=== PATIENT | male | born 1975 | race African-American/Black ===

== ENCOUNTER → 2017-02-15 | Outpatient (CLI) | payer OTHER ==
--- NOTE | 2017-02-15 14:34 | KCIC ---
MR of the right knee HISTORY: Right knee pain laterally. Pain after getting out of car over 1 month ago. Swelling. TECHNIQUE: Routine multiplanar sequences are obtained. FINDINGS: Mild distortion of the medial meniscus best seen on the coronal slices. There is also blunting of the free margin on the single coronal slice. Findings are suspicious for a small tear. No large tear identified. Lateral meniscus intact. Anterior and posterior cruciate ligaments intact. Medial collateral ligament intact. Iliotibial band unremarkable. Fibular collateral ligament, biceps femoris tendon and popliteus tendon are intact. Extensor mechanism is intact. Small joint effusion. No evidence of osteochondral loose body. 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 Partial cartilage loss at the lower medial femoral trochlea, measuring 18 mm height by 11 mm wide. No bone lesion or acute fracture. No significant Hernández's cyst. IMPRESSION: 1. Probable very small medial meniscal tear. 2. Focal partial thickness thinning of the lower medial femoral trochlea. This could indicate prior microtrauma with cartilage tear, versus more chronic degenerative chondromalacia. No loose fragment is visualized. Electronically signed by: Juan M Crespo MD (02/15/2017 2:31 PM)
== END | disposition home or self-care (01) ==
LOC: KCIC MRI 12:46
PROVIDERS: ATTEND Internal Medicine Pulmonary Disease
DX: M25.561 Pain in right knee (principal)
CPT/HCPCS: 73721